=== PATIENT | female | born 1970 ===

== ENCOUNTER 2017-12-15 13:55 | Emergency (ER) | payer MEDICARE ==
[2017-12-15 13:56] VITALS: BMI 31.2
[2017-12-15 15:26] VITALS: RESP 20; O2SAT 99
[2017-12-15] MEDS ORDERED: Oxycodone/Acetaminophen 5/325 mg Tab PO STA (15:40)
[2017-12-15] MEDS ORDERED: Oxycodone/Acetaminophen 5/325 mg Tab ONE (16:02)
--- NOTE | 2017-12-15 17:29 | C.PDOC ---
History Of Present Illness 47 y/o female presents to the ER complaining of right hip and thigh pain which began after she tripped and fell at home today. Patient denies having other injuries. Of note, patient has history of rheumatoid arthritis. Time Seen by Provider: 12/15/17 15:30 Chief Complaint (Nursing): Hip Pain History Per: Patient History/Exam Limitations: no limitations Onset/Duration Of Symptoms: Hrs Current Symptoms Are (Timing): Still Present Severity: Moderate Past Medical History Reviewed: Historical Data, Nursing Documentation, Vital Signs Vital Signs: Last Vital Signs Temp 98.7 F 12/15/17 17:43 Pulse 86 12/15/17 17:43 Resp 20 12/15/17 17:43 BP 144/104 H 12/15/17 17:43 Pulse Ox 99 12/15/17 21:17 - Medical History PMH: Arthritis, HTN, Rheumatoid Arthritis Denies: Alzheimer's Disease, Anemia, Anxiety, Asthma, Atrial Fibrillation, Bipolar Disorder, Bronchitis, CAD, Cardia Arrhythmia, CHF, COPD, Crohn's Disease , Dementia, Depression, Diverticulitis, Emphysema, Fractures, Gastritis, Gall Bladder Disease, HIV, Hypercholesterolemia, Hyperthyroidism, Hypothyroidism, Kidney Stones, Migraine, Mitral Valve Prolapse, Multiple Sclerosis, Osteoporosis , Pancreatitis, Paranoia, Parkinson's Disease, Peripheral Edema, Pneumonia, Post Traumatic Stress Disorder, Pulmonary Embolism, Chronic Kidney Disease, Schizophrenia, Seizures, Sickle Cell Disease, Sexually Transmitted Disease, Sleep Apnea, TIA Surgical History: Denies: Appendectomy, CABG, Carotid Endarterectomy, Cholecystectomy, Coronary Stent, Pacemaker, Tonsillectomy - [facility] Procedures INSERTION OF INFUSION DEV INTO SUP VENA CAVA, PERC APPROACH (10/30/17) INTRODUCE OF OTH ANTI-INFECT INTO PERIPH VEIN, PERC APPROACH (11/07/17) INTRODUCE OTH ANTI-INFECT IN CENTRAL VEIN, PERC (10/30/17) ULTRASONOGRAPHY OF SUPERIOR VENA CAVA, GUIDANCE (10/30/17) Family History: States: No Known Family Hx - Social History Hx Tobacco Use: No Hx Alcohol Use: No Hx Substance Use: No - Immunization History Hx Tetanus Toxoid Vaccination: No Hx Influenza Vaccination: No Hx Pneumococcal Vaccination: No Review Of Systems Except As Marked, All Systems Reviewed And Found Negative. Musculoskeletal: Positive for: Other (right hip and right thigh pain) Neurological: Negative for: Weakness, Numbness Physical Exam - Physical Exam Appears: Non-toxic, No Acute Distress Skin: Normal Color, Warm, Dry, No Ecchymosis Head: Atraumatic, Normacephalic Eye(s): bilateral: Normal Inspection Nose: Normal Oral Mucosa: Moist Neck: Supple Chest: Symmetrical Cardiovascular: Rhythm Regular Respiratory: Normal Breath Sounds, No Rales, No Rhonchi, No Wheezing Extremity: Normal ROM, Tenderness (tenderness to lateral aspect of right hip and anterior aspect of right thigh), No Swelling Neurological/Psych: Oriented x3, Normal Speech ED Course And Treatment O2 Sat by Pulse Oximetry: 99 (RA) Pulse Ox Interpretation: Normal - Other Rad X-Ray - Hip/ Pelv. X-Ray: Viewed By Me, Read By Radiologist Interpretation: PROCEDURE: Pelvis and right hip. HISTORY: fall. COMPARISON: December 15, 2017. Right femur reported separately. TECHNIQUE: Standard protocol for this study/examination. FINDINGS: There are no osseous abnormalities to suggest fracture. The pelvic ring is intact. Preserved femoral-acetabular relationship. Negative study for protrusio, subluxation or dislocation. Degenerative changes: None. IMPRESSION: No acute findings related to/ accounting for the clinical presentation. X-Ray- Femur X-Ray: Viewed By Me, Read By Radiologist Interpretation: PROCEDURE: Right femur. HISTORY: Posttraumatic pain. COMPARISON: December 15, 2017. Right hip reported separately. TECHNIQUE: Standard protocol for this study/examination. FINDINGS: No significant/acute osseous, articular or soft tissue abnormalities. IMPRESSION: No acute findings related to/accounting for the clinical presentation. Progress Note: Patient is walking with crutches she brought from home. t X- Ray - Hip/ Pelv. and X-Ray- Femur were found to be negative. Patient treated with Percocet PO. Patient has been discharged and told to follow up with PMD and orthopedist in 1-2 days. Disposition - Disposition Referrals: Case Hayden MD [Staff Provider] - Mohan Cortes MD [Staff Provider] - Disposition: HOME/ ROUTINE Disposition Time: 17:29 Condition: STABLE Additional Instructions: Follow up with PMD and orthopedist within 1-2 days. Return to ED if feel worse. Prescriptions: Lidocaine 5% [Lidoderm] 1 patch TP DAILY #30 patch Ibuprofen [Motrin Tab] 400 mg PO Q8 #30 tab Famotidine [Pepcid] 20 mg PO BID #20 tab Instructions: Hip Pain (DC) Forms: [facility] (Cameroonian) - Clinical Impression Clinical Impression: Sprain hip/thigh - PA / ACCOUNT SERVICES ASSOCIATE / Resident Statement MD/DO has reviewed & agrees with the documentation as recorded. - Scribe Statement The provider has reviewed the documentation as recorded by the Scribe Melissa Ontiveros Provider Attestation All medical record entries made by the Scribe were at my direction and personally dictated by me. I have reviewed the chart and agree that the record accurately reflects my personal performance of the history, physical exam, medical decision making, and the department course for this patient. I have also personally directed, reviewed, and agree with the discharge instructions and disposition.
[2017-12-15 17:44] VITALS: BP 144/104; PULSE 86; TEMP 98.7
--- NOTE | 2017-12-15 17:49 | RAD ---
PROCEDURE: Right femur HISTORY: Posttraumatic pain COMPARISON: December 15, 2017. Right hip reported separately TECHNIQUE: Standard protocol for this study/examination. FINDINGS: No significant/acute osseous, articular or soft tissue abnormalities. IMPRESSION: No acute findings related to/accounting for the clinical presentation.
--- NOTE | 2017-12-15 17:49 | RAD ---
PROCEDURE: Pelvis and right hip HISTORY: fall COMPARISON: December 15, 2017. Right femur reported separately. TECHNIQUE: Standard protocol for this study/examination. FINDINGS: There are no osseous abnormalities to suggest fracture. The pelvic ring is intact. Preserved femoral-acetabular relationship. Negative study for protrusio, subluxation or dislocation. Degenerative changes: None. IMPRESSION: No acute findings related to/accounting for the clinical presentation.
== END 2017-12-15 17:44 | disposition home or self-care (01) ==
LOC: C.ER 13:55
DX: S73.101A Unspecified sprain of right hip, initial encounter (principal); W01.0XXA Fall on same level from slipping, tripping and stumbling without subsequent striking against object, initial encounter